=== PATIENT | male | born 1970 | race African-American/Black ===

== ENCOUNTER 2016-05-01 16:30 | Emergency (ER) | payer BC ==
[~2016-05-01 16:30] MED LIST: ENDOCET1 TA4 PO; GLUMETZA500 MG PO; LOTREL1 CA4 PO; METOPROLOL PO; NORV10 PO; RIOMET PO; ZESTRIL30 MG PO
== END 2016-05-01 17:26 | disposition home or self-care (01) ==
LOC: ER 16:30
DX: J06.9 Acute upper respiratory infection, unspecified (principal); I10 Essential (primary) hypertension; E11.9 Type 2 diabetes mellitus without complications; Z79.899 Other long term (current) drug therapy
CPT/HCPCS: 99283

== ENCOUNTER 2016-08-13 08:56 | Emergency (ER) | payer BC | END 2016-08-13 09:45 | disposition home or self-care (01) | LOC: ER 08:56 | DX: M25.572 Pain in left ankle and joints of left foot (principal); I10 Essential (primary) hypertension; E11.9 Type 2 diabetes mellitus without complications; Z79.899 Other long term (current) drug therapy; Z79.84 Long term (current) use of oral hypoglycemic drugs | CPT/HCPCS: 73610-LT; 96374; 99285; J1885 ==